=== PATIENT | female | born 1990 | race Caucasian/White ===

== ENCOUNTER 2020-12-25 09:30 | Outpatient (RCR) | payer OTHER, SELFPAY ==
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
== END 2020-12-25 13:14 | disposition home or self-care (01) ==
LOC: OT 09:30
PROVIDERS: PCP Family Medicine; Referring Provider Family Medicine; Visit Provider Family Medicine
DX: M25.531 Pain in right wrist (principal); R53.1 Weakness
CPT/HCPCS: 97035; 97110; 97112; 97140; 97165; 97530